=== PATIENT | female | born 1965 | race Caucasian/White ===

== ENCOUNTER 2017-11-18 15:41 | Emergency (ER) | payer OTHER ==
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
--- NOTE | 2017-11-19 10:03 | US VENOUS DOPPLER REPORT ---
EXAM: LEFT LOWER EXTREMITY DUPLEX VENOUS ULTRASOUND HISTORY: LEG PAIN. TECHNIQUE: Transverse and longitudinal sonographic images of the deep venous system of the left lower extremity was obtained. Comparison: None. FINDINGS: No visible areas of thrombus formation. Doppler and spectral analysis with color flow was utilized. Normal waveforms. Normal compression and augmentation throughout the left lower extremity deep venous system. IMPRESSION: NEGATIVE FOR DVT. JOB NUMBER: [id number] MTDD
== END 2017-11-18 17:36 | disposition home or self-care (01) ==
LOC: ER 15:41
DX: M79.662 Pain in left lower leg (principal); F17.210 Nicotine dependence, cigarettes, uncomplicated
CPT/HCPCS: 99283

== ENCOUNTER 2019-08-27 10:33 | Emergency (ER) | payer BC, OTHER ==
[2019-08-27 12:09] LABS: STREP A SCREEN NEGATIVE (NEGATIVE)
[2019-08-27 12:17] LABS: INFLUENZA A POSITIVE (NEGATIVE); INFLUENZA B NEGATIVE (NEGATIVE)
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
== END 2019-08-27 12:45 | disposition home or self-care (01) ==
LOC: ER 10:33
DX: J10.1 Influenza due to other identified influenza virus with other respiratory manifestations (principal)
CPT/HCPCS: 87400; 87880; 99283